=== PATIENT | female | born 1980 | race Caucasian/White ===

== ENCOUNTER 2017-01-01 11:55 | Emergency (ER) | payer OTHER | END 2017-01-01 14:36 | disposition home or self-care (01) | LOC: ER 11:55 | DX: M54.5 Low back pain (principal); Z98.51 Tubal ligation status; F17.210 Nicotine dependence, cigarettes, uncomplicated; M47.9 Spondylosis, unspecified | CPT/HCPCS: 72100; 96372; 99283-25 ==